=== PATIENT | male | born 1965 | race Caucasian/White ===

== ENCOUNTER → 2024-01-09 10:01 | Outpatient (REF) | payer BC, SELFPAY | LOC: HWRAD 10:01 | PROVIDERS: ATTENDING PHYSICIAN Chiropractor; FAMILY PHYSICIAN Family Medicine | DX: M79.661 Pain in right lower leg (principal) | CPT/HCPCS: 73590 ==

== ENCOUNTER → 2024-07-09 14:09 | Outpatient (REF) | payer BC, SELFPAY | LOC: MRI 3T 14:09 | PROVIDERS: ATTENDING PHYSICIAN Specialist; FAMILY PHYSICIAN Chiropractor | DX: M54.16 Radiculopathy, lumbar region (principal) | CPT/HCPCS: 72148 ==